=== PATIENT | male | born 1950 | race Caucasian/White ===

== ENCOUNTER → 2019-02-19 | Day surgery (SDC) | payer BC, MEDICARE ==
[~2019-02-19] MED LIST: ASPIR 8181 MG PO; BALANCED SALT SOLN (OPTH) 15 ML BTL IO ONE; CARVEDILOL12.5 MG PO; DIAZEPAM5 MG PO; ELIQUIS5 MG PO; FENOFIBRATE145 MG PO; FENTANYL CITRATE/PF 100MCG/2 ML INJ ONE; INSULIN DEGLUDEC SC; LASIX20 MG PO; LIDOCAINE HCL-PF 4% 40 MG/1 ML 5ML AMP ONE; LISINOPRIL10 MG PO; METFORMIN HCL500 M2 PO; MIDAZOLAM HCL 2 MG/2 ML VIAL ONE; POTASSIUM CHLO20 ME1 PO; POVIDONE IODINE 5% (OPTH) 30 ML BTL ONE
[2019-02-19 11:54] VITALS: BP 108/83
== END | disposition home or self-care (01) ==
LOC: OR 08:44
PROVIDERS: ATTEND Ophthalmology
DX: H11.001 Unspecified pterygium of right eye (principal); I48.91 Unspecified atrial fibrillation; E11.9 Type 2 diabetes mellitus without complications; G47.33 Obstructive sleep apnea (adult) (pediatric); I10 Essential (primary) hypertension; F98.8 Other specified behavioral and emotional disorders with onset usually occurring in childhood and adolescence; Z79.82 Long term (current) use of aspirin; Z79.84 Long term (current) use of oral hypoglycemic drugs; Z79.02 Long term (current) use of antithrombotics/antiplatelets; Z95.0 Presence of cardiac pacemaker
CPT/HCPCS: 36415; 65426; 82948; 88304; J2250; J3010; V2790